=== PATIENT | female | born 1990 | race Caucasian/White ===

== ENCOUNTER 2016-06-07 09:20 | Day surgery (SDCO) | payer OTHER ==
[2016-06-07 10:46] LABS: HGB 10.1 g/dl (12.5-16.0); MCH 27.7 pg (25.0-31.0); MCHC 33.7 g/dL (32.0-36.0); MCV 82.2 fL (78.0-100.0); PLT 98 K/uL (150-400); RBC 3.65 M/uL (4.20-5.40); WBC 9.2 K/uL (4.0-10.5)
== END 2016-06-08 08:45 | disposition home or self-care (01) ==
LOC: FOD 09:20 → FOB 09:21
PROVIDERS: ADMIT Obstetrics & Gynecology
DX: Z04.1 Encounter for examination and observation following transport accident (principal); V49.9XXA Car occupant (driver) (passenger) injured in unspecified traffic accident, initial encounter; O71.89 Other specified obstetric trauma; O99.013 Anemia complicating pregnancy, third trimester; D69.6 Thrombocytopenia, unspecified; E72.12 Methylenetetrahydrofolate reductase deficiency; Z88.8 Allergy status to other drugs, medicaments and biological substances; Z90.49 Acquired absence of other specified parts of digestive tract; Z82.61 Family history of arthritis; Z82.49 Family history of ischemic heart disease and other diseases of the circulatory system; Z80.8 Family history of malignant neoplasm of other organs or systems
CPT/HCPCS: 36415; G0378

== ENCOUNTER 2016-06-18 20:03 | Inpatient (IN) | payer OTHER ==
[~2016-06-18] VITALS: Ht 154.9 cm; Wt 77.6 kg
[2016-06-18 20:40] LABS: HCT 31.5 % (37.0-47.0); HGB 10.1 g/dl (12.5-16.0); MCH 26.6 pg (25.0-31.0); MCHC 32.1 g/dL (32.0-36.0); MCV 82.9 fL (78.0-100.0); RBC 3.8 M/uL (4.20-5.40); RDW 13.6 % (11.5-14.0); WBC 9.3 K/uL (4.0-10.5)
[2016-06-18 20:41] LABS: BILIRUBIN NEGATIVE (NEGATIVE); BLOOD NEGATIVE Ery/uL (NEGATIVE); COLOR YELLOW (YELLOW); GLUCOSE (U) NORMAL (NORMAL); KETONE (U) NEGATIVE (NEGATIVE); LEUKOCYTES NEGATIVE Leu/uL (NEGATIVE); NITRITE NEGATIVE (NEGATIVE); PROTEIN NEGATIVE (NEGATIVE)
[2016-06-18 20:43] LABS: CLARITY SLIGHTLY HAZY (CLEAR)
[2016-06-18 21:37] LABS: INR 1.05 (0.9-1.2); PROTHROMBIN TIME 13.3 SECONDS (11.7-14.0)
[2016-06-18 22:27] LABS: ALBUMIN 3.8 g/dL (3.5-5.0); BILIRUBIN - TOTAL 0.2 mg/dL (0.1-1.0); CREATININE 0.5 mg/dL (0.5-1.0); GLOBULIN (CALCULATION) 2.5 g/dL (2.2-4.2); TOTAL PROTEIN 6.3 g/dL (6.4-8.3)
[2016-06-19 20:39] LABS: BASOPHIL NO PRINT 0.1 % (0-2); EOSINOPHIL NO PRINT 0 % (0-5); HCT NO PRINT 31.7 % (37.0-47.0); HGB NO PRINT 10.3 g/dL (12.5-16.0); LYMPHOCYTE NO PRINT 3.4 % (15-48); MCH NO PRINT 26.8 pg (25.0-31.0); MCHC NO PRINT 32.5 g/dL (32.0-36.0); MCV NO PRINT 82.6 fL (78.0-100.0); MPV NO PRINT 12.2 fL (6.0-9.5); NEUTROPHIL NO PRINT 89.5 % (41-80); PLT 112 K/uL (150-400); RBC NO PRINT 3.84 M/uL (4.20-5.40); RDW NO PRINT 13.4 % (11.5-14.0); WBC NO PRINT 17.4 K/uL (4.0-10.5)
[2016-06-20 07:18] LABS: HCT 32.5 % (37.0-47.0); HGB 10.3 g/dl (12.5-16.0); MCH 26.3 pg (25.0-31.0); MCHC 31.7 g/dL (32.0-36.0); MCV 83.1 fL (78.0-100.0); MPV 12.7 fL (6.0-9.5); RBC 3.91 M/uL (4.20-5.40); RDW 13.7 % (11.5-14.0); WBC 13.2 K/uL (4.0-10.5)
== END 2016-06-21 16:20 | disposition home or self-care (01) | DRG 775 ==
LOC: FOB 20:03
PROVIDERS: ADMIT Obstetrics & Gynecology
PROC: 10E0XZZ Delivery of Products of Conception, External Approach (ICD-10-PCS; principal; 2016-06-19)
PROC: 3E0P7GC Introduction of Other Therapeutic Substance into Female Reproductive, Via Natural or Artificial Opening (ICD-10-PCS; 2016-06-19)
PROC: 10907ZC Drainage of Amniotic Fluid, Therapeutic from Products of Conception, Via Natural or Artificial Opening (ICD-10-PCS; 2016-06-19)
PROC: 4A1HX4Z Monitoring of Products of Conception, Cardiac Electrical Activity, External Approach (ICD-10-PCS; 2016-06-19)
DX: O99.12 Other diseases of the blood and blood-forming organs and certain disorders involving the immune mechanism complicating childbirth (principal); E72.12 Methylenetetrahydrofolate reductase deficiency; Z37.0 Single live birth; Z3A.39 39 weeks gestation of pregnancy; O99.02 Anemia complicating childbirth
CPT/HCPCS: 36415; 80053; 81003; 85049; 85384; 85610; 85730